=== PATIENT | male | born 1950 | race Caucasian/White ===

== ENCOUNTER 2022-01-20 11:51 | Observation (INO) | payer MEDICARE ==
[~2022-01-20] VITALS: Ht 170.2 cm; Wt 75.3 kg
[~2022-01-20 11:51] MED LIST: ACCUPRIL20 MG PO; ALLEGRA ALLERG180 MG PO; BUDESONIDE0.5 MG/2 M NEB; CALCIUM + VIT1 EACH PO; CATAPRES-TTS 11 EACH SUBD; COMBIVENT INH14.7 GM INH; COMBIVENT RESPIM4 GM IH; COQ-10100 MG PO; ECOTRIN325 MG PO; FLOVENT DISKUS50 MCG INH; GARLIC OIL3 MG PO; LATANOPROST2.5 ML OP; LIPITOR10 MG PO; LOPRESSOR50 MG PO; MAG-OXIDE400 MG PO; MUCINEX1200 MG PO; MULTIPLE VITAM1 EAC2 PO; NITROSTAT0.4 MG; NORVASC10 MG PO; OMEGA 3 FISH O1 EACH PO; PERFOROMIS20 MCG/2 M INH; PLAVIX75 MG PO; PREDNISONE20 MG PO; PROAIR HFA INH8.5 GM INH; QVAR7.3 G1 INH; SINGULAIR10 MG PO; SYMBICORT 16010.2 GM IH; THEO-24400 MG PO; TUDORZA PRESS400 MCG INH; VITAMIN C500 MG PO; VITAMIN E1000 UNI2 PO; XOPENEX HFA15 GM IH
[2022-01-20 12:27] LABS: BASOPHILS % 0.4 % (0.0-1.0); EOSINOPHILS # (AUTO) 0.1 (0.0-0.4); EOSINOPHILS % 1.3 % (0.0-6.0); HEMATOCRIT 36.9 % (38.2-49.6); HEMOGLOBIN 11.3 g/dL (14.0-18.0); LYMPHOCYTES # (AUTO) 1.5 (1.0-3.2); LYMPHOCYTES % 15.9 % (18.0-39.1); MEAN CORPUSCULAR HEMOGLOBIN 29.6 pg (28-32); MEAN CORPUSCULAR HGB CONC 30.6 g/dL (31-35); MEAN CORPUSCULAR VOLUME 96.6 fL (81-99); MONOCYTES # (AUTO) 0.6 (0.2-0.8); MONOCYTES % 5.8 % (4.4-11.3); NEUTROPHILS # (AUTO) 7.4 (2.1-6.9); NEUTROPHILS % 76.3 % (38.7-80.0); PLATELET COUNT 161 x10e3/uL (140-360); RED BLOOD COUNT 3.82 x10e6/uL (4.3-5.7); RED CELL DISTRIBUTION WIDTH 12.8 % (11.7-14.4)
[2022-01-20] MEDS ORDERED: SODIUM CHLORIDE 0.9% 500ML 500 ML IV ONE (12:30)
[2022-01-20 12:31] LABS: INR 1.37
[2022-01-20 12:32] LABS: PARTIAL THROMBOPLASTIN TIME 34.8 seconds (23.8-35.5)
[2022-01-20 12:43] LABS: ALBUMIN 3.6 g/dL (3.5-5.0); ALBUMIN/GLOBULIN RATIO 1.1 (0.8-2.0); ANION GAP 21.8 mmol/L (8-16); CALCIUM 10.9 mg/dL (8.4-10.2); CREATININE, SERUM 2.77 mg/dL (0.72-1.25); MAGNESIUM 2.3 MG/DL (1.3-2.1)
[2022-01-20 12:44] LABS: POTASSIUM 5.8 mmol/L (3.5-5.1)
[2022-01-20 12:49] LABS: CREATINE KINASE MB 2.1 ng/mL (0-5.0)
[2022-01-20] MEDS ORDERED: ALBUTEROL SULF 0.083% NEB SOLN 3 ML NEB NEB ONE (12:55)
[2022-01-20] MEDS ORDERED: SODIUM BICARBONATE 8.4% 50 ML VIAL IV STA (12:55)
[2022-01-20 13:11] LABS: CLARITY,URINE SL CLOUDY (CLEAR); COLOR,URINE YELLOW (YELLOW); KETONES,URINE NEGATIVE (NEGATIVE); LEUKOCYTE ESTERASE ,URINE NEGATIVE (NEGATIVE); NITRITE,URINE NEGATIVE (NEGATIVE); PROTEIN,URINE DIPSTICK 2+ (NEGATIVE); URINE UROBILINOGEN 0.2 mg/dL (0.2 - 1)
[2022-01-20] MEDS ORDERED: SODIUM BICARBONATE 8.4% INJ 50 ML SYR IV ONE (13:15)
[2022-01-20] MEDS ORDERED: SODIUM CHLORIDE IV ONE (13:15)
[2022-01-20] MEDS ORDERED: CALCIUM GLUCONATE 1 GM/50 ML IV ONE (13:15)
[2022-01-20 13:18] LABS: AMORPHOUS SEDIMENT,URINE FEW (FEW); BACTERIA,URINE MODERATE /HPF
[2022-01-20] MEDS ORDERED: ONDANSETRON HCL INJ 2MG/ML 2ML 2 MG/ML VIAL IV PRN (15:30)
[2022-01-20] MEDS: SODIUM CHLORIDE 0.9% 1000ML 1,000 ML IV SCH (15:43)
[2022-01-20 21:11] VITALS: BP 165/57
[2022-01-20] MEDS ORDERED: XARELTO20 MG PO (21:32)
[2022-01-20] MEDS ORDERED: AMLODIPINE BESYLATE 5 MG TAB PO ONE (22:00)
[2022-01-20] MEDS ORDERED: ALBUTEROL/IPRATROPIUM 3 ML NEB NEB PRN (22:00)
[2022-01-20 22:26] VITALS: BP 165/57
[2022-01-21 00:14] VITALS: BP 174/57
[2022-01-21 00:39] VITALS: BP 174/57
[2022-01-21] MEDS ORDERED: AZELASTINE137 MCG/0. IH (03:17)
[2022-01-21] MEDS: SODIUM CHLORIDE 0.9% 1000ML 1,000 ML IV SCH ×2 (04:04→11:30)
[2022-01-21 04:57] VITALS: BP 169/50
[2022-01-21 05:58] LABS: BASOPHILS % 0.3 % (0.0-1.0); EOSINOPHILS # (AUTO) 0.2 (0.0-0.4); EOSINOPHILS % 2.4 % (0.0-6.0); LYMPHOCYTES # (AUTO) 1.5 (1.0-3.2); LYMPHOCYTES % 23.3 % (18.0-39.1); MEAN CORPUSCULAR HEMOGLOBIN 29.7 pg (28-32); MEAN CORPUSCULAR HGB CONC 31.3 g/dL (31-35); MONOCYTES # (AUTO) 0.6 (0.2-0.8); MONOCYTES % 9.8 % (4.4-11.3); NEUTROPHILS # (AUTO) 4.2 (2.1-6.9); NEUTROPHILS % 63.9 % (38.7-80.0); PLATELET COUNT 124 x10e3/uL (140-360); RED BLOOD COUNT 3.37 x10e6/uL (4.3-5.7); RED CELL DISTRIBUTION WIDTH 12.5 % (11.7-14.4)
[2022-01-21 06:28] LABS: CREATINE KINASE MB 2.3 ng/mL (0-5.0)
[2022-01-21 06:35] LABS: ALBUMIN 3.2 g/dL (3.5-5.0); ALBUMIN/GLOBULIN RATIO 1.2 (0.8-2.0); ANION GAP 10.3 mmol/L (8-16); CALCIUM 9.3 mg/dL (8.4-10.2); CREATININE, SERUM 2.19 mg/dL (0.72-1.25); POTASSIUM 4.3 mmol/L (3.5-5.1)
[2022-01-21] MEDS ORDERED: IPRATROPIUM INH PRN (06:45)
[2022-01-21] MEDS ORDERED: ALBUTEROL INH PRN (06:45)
[2022-01-21] MEDS ORDERED: IPRATROPIUM/ALBUTEROL SULFATE 4 GM INH INH PRN (06:45)
[2022-01-21 08:07] VITALS: BP 180/54
[2022-01-21 08:10] VITALS: BP 180/54
[2022-01-21] MEDS ORDERED: ALBUTEROL SULFATE HFA 8GM INHALATION AEROSOL INH PRN (10:15)
[2022-01-21] MEDS ORDERED: NITROGLYCERIN 0.4 MG SUBL SL PRN (10:15)
[2022-01-21] MEDS ORDERED: AMLODIPINE BESYLATE 10 MG TAB PO SCH (11:30)
[2022-01-21] MEDS ORDERED: METOPROLOL TARTRATE 50 MG TAB PO SCH (11:30)
[2022-01-21 11:58] VITALS: BP 173/52
[2022-01-21] MEDS ORDERED: BUDESONIDE 0.5MG/2 ML NEB NEB SCH (19:00)
[2022-01-21] MEDS ORDERED: FORMOTEROL FUMARATE 20 MCG/2 ML VIAL IH SCH (19:00)
[2022-01-21] MEDS ORDERED: IPRATROPIUM/ALBUTEROL SULFATE 4 GM INH INH SCH (19:00)
[2022-01-21] MEDS ORDERED: LATANOPROST(OPTH) 2.5 ML BTL OP SCH (21:00)
[2022-01-22] MEDS ORDERED: AZELASTINE HCL 137 MCG NASAL SPRAY NS SCH (09:00)
[2022-01-22] MEDS ORDERED: NON-FORMULARY MEDICATION (Fexofenadine Hcl (Allegra Allergy) 180 MG) PO SCH (09:00)
[2022-01-22] MEDS ORDERED: LORATADINE 10 MG TAB PO SCH (09:00)
[2022-01-22] MEDS ORDERED: MONTELUKAST SODIUM 10 MG TAB PO SCH (09:00)
== END 2022-01-21 12:50 | disposition left against medical advice (07) ==
LOC: ER 12:01 → ERHOLD 15:29 → MED/SURG3 17:43
PROVIDERS: ADMIT Internal Medicine; ATTEND Internal Medicine
DX: N17.9 Acute kidney failure, unspecified (principal); E87.5 Hyperkalemia; J44.9 Chronic obstructive pulmonary disease, unspecified; Z79.899 Other long term (current) drug therapy; Z20.822 Contact with and (suspected) exposure to COVID-19; I48.91 Unspecified atrial fibrillation; Z79.01 Long term (current) use of anticoagulants; R00.1 Bradycardia, unspecified
CPT/HCPCS: 36415 ×2; 70450; 80053 ×2; 81001; 82550 ×2; 82553 ×2; 83735; 84484 ×2; 85025 ×2; 85610; 85730; 87086; 93005; 94640; 94799; 97139; 99284; G0378 ×2; J7030 ×2; J7040; U0002